=== PATIENT | male | born 1955 | race Caucasian/White ===

== ENCOUNTER 2023-05-11 11:14 | Emergency (ER) | payer MEDICARE, SELFPAY ==
[2023-05-11 11:39] VITALS: BP 148/95; PULSE 96; RESP 18; TEMP 36.4; O2SAT 98; BMI 43.0
--- NOTE | 2023-05-11 11:49 | ED.GENADULT ---
HPI - General Adult General Chief complaint: Back Pain/Injury Stated complaint: Back pain/R leg pain & foot swelling Time Seen by Provider: 05/11/23 12:32 Source: patient Mode of arrival: ambulatory Limitations: no limitations History of Present Illness HPI narrative: Patient is a 67-year-old male with history of AFib not anticoagulated, lower back pain for the past several months, presenting with difficulty walking since this morning as well as new right foot swelling since this morning. He has had x-rays as well as MRI, was told there was a finding regarding his left hip but is unsure with the finding was. Has been seeing the chiropractor intermittently. He has an appointment with the hip specialist in the next few weeks. Has been using topical [id number]-jvb-[id number] rubs as well as NSAIDs with little relief. Denies any fevers. Denies any numbness or tingling to lower extremities. Denies any saddle anesthesia or bowel or bladder incontinence. Denies any calf pain or tenderness. Denies any chest pain or shortness of breath. MD complaint: Low back pain, right foot swelling Onset (ago): hour(s) Location: lower extremity Severity: severe Quality: aching Pain Consistency: constant Relieving factors: rest Exacerbating factors: movement Associated symptoms: denies other symptoms Treatments prior to arrival: NSAID, cold therapy, heat therapy and other (Icy hot, topical CBD) Related Data Previous Rx's Medication Instructions Recorded prednisone 50 mg tablet 50 mg PO DAILY #5 tabs 05/11/23 Allergies Allergy/AdvReac Type Severity Reaction Status Date / Time No Known Allergies Allergy Verified 05/11/23 11:39 Review of Systems Review of Systems: As per HPI. Yes all other systems are reviewed and are negative Constitutional: Constitutional: Reports as per HPI [facility] Social History Social History Advance Directives: No Advance Directives Information Provided: No Physical Exam ED Vital Signs: Vital Signs - 24 hr 05/11/23 11:39 05/11/23 14:57 Temperature 97.6 F 97.7 F Pulse Rate 96 84 Respiratory Rate 18 Blood Pressure 148/95 H 171/107 H Pulse Oximetry 98 100 Oxygen Delivery Method Room Air Room Air BMI result Body Mass Index 43.0 Vital signs have been reviewed and appear to be correct. Blood pressure slightly elevated. Heart rate normal. Respiratory rate normal. Temperature normal. Oxygen saturation normal. Const General: cooperative, healthy appearing and no acute distress Orientation/consciousness: oriented to person, oriented to place, oriented to time and patient oriented x3 Limitations: no limitations HENMT Head: Yes normocephalic and Yes atraumatic Ears: external ears normal General nose exam: Normal external nose present Face and sinus: Yes face symmetric Mouth: oropharynx normal and moist mucous membranes Throat: Yes uvula midline Eyes Pupils: Equal, round and reactive pupils present Neck Neck: Yes normal visual inspection and Yes supple Resp Effort & Inspection: normal respiratory effort and able to speak in complete sentences Auscultation: clear to auscultation bilaterally Cardio Rate: regular rate Rhythm: regular rhythm Heart sounds: S1 normal heart sound present and S2 normal heart sound present GI Palpation (GI): Soft to palpation and nontender Auscultation: normoactive bowel sounds General: Yes no CVA tenderness Back/Spine/Pelvis Back: no CVA tenderness Thoracic/Lumbar Spine: thoracic and lumbar spine normal to inspection, thoraco-lumbar ROM normal, straight leg raise negative bilaterally, pain with thoraco-lumbar ROM, No thoracic spinal tenderness and No lumbar spinal tenderness Pelvis: no pain with anterior-posterior compression and no pain with lateral compression Skin General skin exam: elasticity normal and turgor normal Neuro General: oriented to person, oriented to place, oriented to time, patient oriented x3, moves all extremities, no focal motor deficits and CN's II-XI intact bilaterally Cranial nerves: Yes Equal, round and reactive pupils present Cognition (Neuro): normal cognition Extrem General: Yes full ROM and Yes no calf tenderness Right upper extremity: normal to inspection, full ROM and normal capillary refill Left upper extremity: normal to inspection, full ROM and normal capillary refill Right lower extremity: full ROM, normal capillary refill, edema Details: non-pitting (very mild) and foot Details: normal capillary refill, toes with normal ROM, edema Location: of the dorsal foot (very mild) and vascular exam Details: dorsalis pedis pulse present and posterior tibial pulse present; no unusual warmth, no ecchymosis and no crepitus Left lower extremity: normal to inspection, full ROM and normal capillary refill Psych Mental Status: mental status grossly normal Affect: normal affect Thought process: Normal thought process present Course Course Course Narrative: RmE:; patient's presents to the ED for crhonic back pain and right hip pain. patient states due to pain not walking. no urinary/bowell incontinence. Patient states no recent trauma. patietn had recent MRI of hip/ankle. Also had recent xray of back. Images were done on 04/16. patient also statesright foot swelling and right calf pain. recent long travel 6 weeks ago. Patient states no chest pain or SOB. US of right lower extremity ordered. Medications Administered Discontinued Medications Generic Name Dose Route Start Last Admin Trade Name Lara PRN Reason Stop Dose Admin Ketorolac Tromethamine 30 mg 05/11/23 13:19 05/11/23 13:24 Ketorolac Tromethamine 30 Mg/Ml Vial IM 05/11/23 13:20 30 mg ONCE ONE Administration Medical Decision Making Medical Decision Making [facility] Narrative: Patient is a 67-year-old male with history of AFib not anticoagulated, lower back pain for the past several months, presenting with difficulty walking since this morning as well as new right foot swelling since this morning. On exam patient is awake, A+Ox3, VS WNL, afebrile, normal neurological exam without focal deficits, no midline thoracic or lumbar tenderness, very slight nonpitting edema to right ankle and foot, 2+ PT and DP pulses. Given reported symptoms and physical exam findings, differential includes DVT, arthritis. Less likely gout as no erythema, warmth. X-ray notable for no acute fracture per radiologist. Ultrasound negative for acute DVT. Unable to interpret x-ray or ultrasound personally as PACS system down. Unlikely epidural abscess, cord compression, cauda equina, osteomyelitis, malignancy or mask, herniated disc, UTI/pyelonephritis. now present at bedside with prior imaging results. 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 X-ray impression states lumbar spondylosis, progressed somewhat compared with the previous study. Discussed pain management options with patient, who would like to trial short course of prednisone. Discussed with patient that he will need to avoid NSAIDs while on the course of prednisone. Will medicate patient with IM Toradol today, so patient advised he can begin the prednisone tomorrow and should avoid NSAIDs until full course of prednisone is complete. Patient able to ambulate with his cane after being medicated. Instructed patient to follow-up with PCP regarding further pain management until he is able to see the hip specialist. Return precautions discussed at bedside. All results discussed and questions answered. Patient verbalized understanding and agreement of plan. Differential Diagnosis Differential Diagnoses: The differential diagnosis associated with the presentation includes As above. Independent Interpretation Interpretation: Unable to independently interpreted x-ray or ultrasound as PACS system down currently Radiology Impression Discussion of test interpretation with radiology: I have reviewed the radiologist's reading. Radiologist Impression: No acute fracture of right foot. No acute DVT RLE. Independent Historian Clinical information obtained from an independent historian. History obtained from or confirmed by: Spouse External Record Review External record reviewed: Inpatient record, Office record, Outpatient record, Prior outpatient radiology and Primary care record Prescription Management I considered prescription management with: Other (prednisone) Discharge Plan Discharge Clinical Impression: Swelling of right foot, Chronic right hip pain Patient Disposition: Home, Self-Care Instructions: Hip Pain (ED) Additional Instructions: You were evaluated in the emergency department today for right foot swelling as well as worsening of chronic hip and back pain. Your x-ray did not show any indication of fracture in your foot. Your ultrasound did not show any evidence of DVT or blood clot in your right leg. You are being prescribed a short course of prednisone for your pain. Do not use any NSAIDs (ibuprofen, naproxen, etc.) while you are taking the prednisone. You may resume use of NSAIDs on the following day after you complete your prednisone. Please follow-up with your PCP regarding ongoing symptoms. Please keep your appointment with the hip specialist in the upcoming weeks. Return to the emergency department with worsening pain, new onset of weakness, numbness, tingling, fever 100.4? F or greater, loss of bowel or bladder control, numbness or tingling to your groin, or any other concerning symptoms. You can follow up with orthopedics if you are unable to see the hip specialist. Prescriptions: New prednisone 50 mg tablet 50 mg PO DAILY Qty: 5 0RF Referrals: [facility] [Provider Group] Interventions: ED Discharge Assessment Last Done: 05/11/23 15:51 Discharge Date/Time: 05/11/23 15:53
--- NOTE | 2023-05-11 13:30 | PC.NURSE ---
pt medicated per Jan for / pain, advised plan is to attempt ambulation on re-eval of PRN effectiveness, pt understands plan. call enriquez within reach
[2023-05-11 14:57] VITALS: BP 171/107; PULSE 84; TEMP 36.5; O2SAT 100
== END 2023-05-11 15:53 | disposition home or self-care (01) ==
PROVIDERS: Emergency Provider Emergency Medicine Emergency Medical Services; PCP Internal Medicine
DX: M79.89 Other specified soft tissue disorders (principal); G89.29 Other chronic pain; M25.551 Pain in right hip; M54.50 Low back pain, unspecified; R26.2 Difficulty in walking, not elsewhere classified; I48.91 Unspecified atrial fibrillation; Z79.01 Long term (current) use of anticoagulants
CPT/HCPCS: 73620; 93971; 96372; 99284; J1885

== ENCOUNTER 2024-05-06 15:44 | Emergency (ER) | payer MEDICARE, SELFPAY ==
--- NOTE | ~2024-05-06 | XR_ITS ---
EXAMINATION: XR CHEST CLINICAL INFORMATION: Chest pain COMPARISON: 12/20/2014 TECHNIQUE: 2 views of the chest were obtained. FINDINGS: There is mild/borderline cardiac enlargement. No other significant abnormality is noted involving the heart, lungs, mediastinum, bony thorax or soft tissues. XR/XR chest 2V IMPRESSION: Mild/borderline cardiomegaly. No acute intrathoracic disease.
--- NOTE | 2024-05-06 15:46 | ECG_ITS ---
Test Reason : CHEST PAIN Blood Pressure : / mmHG Vent. Rate : 075 BPM Atrial Rate : 000 BPM P-R Int : 000 ms QRS Dur : 090 ms QT Int : 394 ms P-R-T Axes : 000 -19 011 degrees QTc Int : 439 ms Atrial fibrillation Abnormal ECG When compared with ECG of 05-JAN-2013 13:15, Atrial fibrillation has replaced Sinus rhythm Nonspecific T wave abnormality no longer evident in Anterolateral leads Referred By: Generic ED Physician Electronically Signed By:CA REDDY MD
[2024-05-06 16:16] VITALS: BP 142/87; PULSE 78; RESP 16; TEMP 36.7; O2SAT 99; BMI 32.3
--- NOTE | 2024-05-06 16:19 | ED.CHESTPAIN ---
HPI - Chest Pain General Chief Complaint: Chest Pain Stated Complaint: chest pain left arm pain Related Data Previous Rx's ?Medication ?Instructions ?Recorded prednisone 50 mg tablet 50 mg PO DAILY #5 tabs 05/11/23 Allergies Allergy/AdvReac Type Severity Reaction Status Date / Time No Known Allergies Allergy Verified 05/06/24 16:20 [facility] Social History Social History Advance Directives: No Advance Directives Information Provided: No Physical Exam Vital Signs: Vital Signs: Last Vital Signs Temp 97.9 F 05/06/24 19:41 Pulse 67 05/06/24 19:41 Resp 18 05/06/24 19:41 BP 153/91 H 05/06/24 19:41 Pulse Ox 99 05/06/24 19:41 O2 Del Method Room Air 05/06/24 19:41 BMI result Body Mass Index 32.3 Course Course Course Narrative: This is an RME: Additional HPI, ROS, PE not included below will be deferred to primary provider. RME assessment and note performed by: Shana Malone PA-C This is a 68-year-old male, with a history of CLL and atrial fibrillation not on anticoagulants, who presents emergency department with complaints of left sided chest pain, left arm pain and left-sided neck pain since today. Vital signs stable, rate controlled. Patient nontoxic appearing. Plan: Labs, EKG, chest x-ray, further ER evaluation needed. Reevaluation(s) Reevaluation #1: Patient left without completing treatment. Medical Decision Making Lab Data 05/06/24 16:56 05/06/24 16:56 Labs: Lab Results 05/06/24 05/06/24 05/06/24 Range/Units 16:56 16:57 20:01 WBC 6.9 (4.8-10.8) X10*3/uL RBC 5.12 (4.60-5.80) X10*6/uL Hgb 15.8 (14.0-18.0) g/dl Hct 46.8 (42.0-52.0) % MCV 91.4 (80.0-98.0) fL MCH 30.9 (27.0-33.0) pg MCHC 33.8 (31.0-36.0) g/dl RDW 13.1 (11.0-16.0) % Plt Count 181 (160-400) X10*3/uL MPV 11.9 (9.4-12.4) fL Immature Gran % (Auto) 0.1 (0.0-0.4) % Neut % (Auto) 52.8 (45-73) % Lymph % (Auto) 36.6 (20-40) % Alfalfa % (Auto) 7.7 (2-11) % Eos % (Auto) 1.9 (0-4) % Baso % (Auto) 0.9 (0-2) % Lymph # (Auto) 2.5 (1.2-4.9) X10*3/uL Alfalfa # (Auto) 0.5 (0.1-1.2) X10*3/uL Eos # (Auto) 0.1 (0.0-0.4) X10*3/uL Baso # (Auto) 0.1 (0.0-0.2) X10*3/uL Abs Immat Gran (auto) 0.01 (0.00-0.03) X10*3/uL Absolute Neuts (auto) 3.6 (2.0-8.3) x10*3/uL Absolute Nucleated RBC 0.000 (0.0-0.012) X10*3/uL Nucleated RBC % (auto) 0.0 (0.0-0.2) /100WBC PT 11.5 (11.1-13.3) SEC INR 0.9 (0.9-1.1) APTT 26.0 (26.0-36.8) SEC Sodium 141 (135-145) mmol/L Potassium 4.1 (3.3-5.1) mmol/L Chloride 107 (96-108) mmol/L Carbon Dioxide 27 (22-29) mmol/L Anion Gap 11 L (12-20) BUN 16 (9-16) mg/dL Creatinine 0.99 (0.5-1.4) mg/dL Estim Creat Clear Calc 86.6 Estimated GFR > 60 Random Glucose 105 (60-115) mg/dL Calcium 9.6 (8.4-10.2) mg/dL Total Bilirubin 0.6 (0.0-1.0) mg/dL Direct Bilirubin 0.2 (0.0-0.5) mg/dL AST 25 (5-37) U/L ALT 28 (0-40) U/L Alkaline Phosphatase 65 (39-117) U/L Troponin I High Sens < 2.7 < 2.7 (<3.5-35.0) ng/L Total Protein 6.6 (6.5-8.0) g/dL Albumin 4.2 (3.5-5.0) g/dL Influenza Type A (PCR) NEGATIVE (Negative) Influenza Type B (PCR) NEGATIVE (Negative) RSV RNA Qual (PCR) NEGATIVE (Negative) SARS-CoV-2 RNA (RT-PCR) NEGATIVE (Negative) Discharge Plan Discharge Clinical Impression: Chest pain Patient Disposition: Left W/O Completing Treatment Prescriptions: No Action prednisone 50 mg tablet 50 mg PO DAILY Qty: 5 0RF Discharge Date/Time: 05/07/24 00:41
[2024-05-06 17:02] LABS: MANUAL DIFF FLAG NO
[2024-05-06 17:10] LABS: INTERNATIONAL NORM RATIO 0.9 (0.9-1.1); Prothrombin Time 11.5 SEC (11.1-13.3)
[2024-05-06 17:13] LABS: Basophils Absolute Auto 0.1 X10*3/uL (0.0-0.2); Basophils Percent Auto 0.9 % (0-2); Eosinophils Absolute Auto 0.1 X10*3/uL (0.0-0.4); Eosinophils Percent Auto 1.9 % (0-4); Hematocrit 46.8 % (42.0-52.0); Hemoglobin 15.8 g/dl (14.0-18.0); Imm Gran Abs Auto 0.01 X10*3/uL (0.00-0.03); Imm Gran Pct Auto 0.1 % (0.0-0.4); Lymphocytes Absolute Auto 2.5 X10*3/uL (1.2-4.9); Lymphocytes Percent Auto 36.6 % (20-40); Mean Corpuscular HGB Conc 33.8 g/dl (31.0-36.0); Mean Corpuscular Hemoglobin 30.9 pg (27.0-33.0); Mean Corpuscular Volume 91.4 fL (80.0-98.0); Mean Platelet Volume 11.9 fL (9.4-12.4); Monocytes Absolute Auto 0.5 X10*3/uL (0.1-1.2); Monocytes Percent Auto 7.7 % (2-11); Neutrophils Absolute Auto 3.6 x10*3/uL (2.0-8.3); Neutrophils Percent Auto 52.8 % (45-73); Platelet Count 181 X10*3/uL (160-400); Red Blood Count 5.12 X10*6/uL (4.60-5.80); Red Cell Distribution Width 13.1 % (11.0-16.0); White Blood Count 6.9 X10*3/uL (4.8-10.8)
[2024-05-06 17:41] LABS: Alanine Aminotransferase 28 U/L (0-40); Albumin Level 4.2 g/dL (3.5-5.0); Alkaline Phosphatase 65 U/L (39-117); Anion Gap 11 (12-20); Aspartate Amino Transferase 25 U/L (5-37); Bilirubin Direct 0.2 mg/dL (0.0-0.5); Bilirubin Total 0.6 mg/dL (0.0-1.0); Blood Urea Nitrogen 16 mg/dL (9-16); Calcium 9.6 mg/dL (8.4-10.2); Carbon Dioxide 27 mmol/L (22-29); Chloride 107 mmol/L (96-108); Creatinine Clr Calc Pharmacy 86.6; Estimated Glomerular Filt Rate > 60; Glucose Random 105 mg/dL (60-115); Potassium 4.1 mmol/L (3.3-5.1); Sodium 141 mmol/L (135-145); Total Protein 6.6 g/dL (6.5-8.0); Troponin-I High Sensitivity < 2.7 ng/L (<3.5-35.0)
[2024-05-06 17:46] LABS: Influenza A PCR NEGATIVE (Negative); Influenza B PCR NEGATIVE (Negative); Resp Syncy Virus RNA Qual PCR NEGATIVE (Negative); SARS COV2 PCR INHOUSE NEGATIVE (Negative)
[2024-05-06 19:41] VITALS: BP 153/91; PULSE 67; RESP 18; TEMP 36.6; O2SAT 99
[2024-05-06 20:28] LABS: Troponin-I High Sensitivity < 2.7 ng/L (<3.5-35.0)
--- NOTE | 2024-05-07 00:40 | PC.NURSE ---
Pt not present in [facility] when called for reeval.
== END 2024-05-07 00:41 | disposition left against medical advice (07) ==
PROVIDERS: Physician Assistant Medical; Emergency Provider Emergency Medicine; PCP Internal Medicine
DX: R07.9 Chest pain, unspecified (principal); M79.602 Pain in left arm; I48.91 Unspecified atrial fibrillation; Z03.818 Encounter for observation for suspected exposure to other biological agents ruled out
CPT/HCPCS: 0241U; 36415; 71046; 80048; 80076; 84484; 85025; 85610; 85730; 93005; 99281; 99283

== ENCOUNTER → 2024-05-06 15:46 | Outpatient (BNV) | payer MEDICARE, SELFPAY | PROVIDERS: Emergency Provider Emergency Medicine; PCP Internal Medicine; Visit Provider Internal Medicine Cardiovascular Disease | DX: R07.9 Chest pain, unspecified (principal); I48.91 Unspecified atrial fibrillation; R94.31 Abnormal electrocardiogram [ECG] [EKG] | CPT/HCPCS: 93010 ==